=== PATIENT | female | born 2000 | race Caucasian/White ===

== ENCOUNTER 2023-02-10 21:54 | Emergency (ER) | payer OTHER, MEDICAID, SELFPAY ==
[2023-02-10 21:57] VITALS: BP 114/72; PULSE 107; RESP 16; TEMP 37.1; O2SAT 100
[2023-02-10 22:13] LABS: Basophils Absolute Auto 0.1 K/mm3 (0.0-0.1); Basophils Percent Auto 0.6 % (0.2-1.2); Eosinophils Absolute Auto 0.3 K/mm3 (0-0.3); Eosinophils Percent Auto 3.2 % (0-4.4); Hematocrit 39.9 % (37.0-47.0); Hemoglobin 12.9 g/dL (12.0-15.0); Immature Granulocyte Absolute 0.02 K/mm3 (0.00-0.031); Immature Granulocyte Percent A 0.2 % (0-0.5); Lymphocytes Absolute Auto 3.58 K/mm3 (0.9-3.2); Lymphocytes Percent Auto 43.8 % (18.3-44.2); Mean Corpuscular HGB Conc 32.3 g/dl (32-36); Mean Corpuscular Hemoglobin 29.9 pg (26-34); Mean Corpuscular Volume 92.6 fl (80-100); Mean Platelet Volume 10.9 fl (7.4-10.4); Monocytes Absolute Auto 0.8 K/mm3 (0.1-0.6); Monocytes Percent Auto 10.3 % (2.6-8.5); Neutrophils Absolute Auto 3.4 K/mm3 (1.3-6.7); Neutrophils Percent Auto 41.9 % (45.5-73.1); Platelet Count Result 276 k/mm3 (150-375); Red Blood Count 4.31 M/mm3 (4.2-5.4); Red Cell Distribution Width 12.6 % (11.5-14.5); White Blood Count 8.2 K/mm3 (4.5-10.0)
[2023-02-10 22:23] LABS: Alanine Aminotransferase 22 U/L (6-35); Albumin Level 4.7 g/dL (3.5-5.1); Alkaline Phosphatase 50 U/L (38-126); Anion Gap 7 mmol/L (8-16); Aspartate Amino Transferase 31 U/L (14-36); Bilirubin,Total 0.4 mg/dL (0.2-1.3); Blood Urea Nitrogen 7 mg/dL (7-17); Carbon Dioxide 28 mmol/L (22-30); Chloride 103 mmol/L (98-107); Estimated CRCL calculation 98 ml/min; Estimated Glomerular Filt Rate > 60; Glucose 78 mg/dL (65-110); Lipase 41 U/L (23-300); Potassium 3.4 mmol/L (3.4-5.0); Sodium 138 mmol/L (137-145)
[2023-02-10 22:47] LABS: Appearance Urine Cloudy (Clear); Bacteria Urine None Seen /hpf; Bilirubin Urine Negative (Negative); Blood Urine Negative (Negative); Color Urine Yellow (Yellow); Glucose Urine UA Negative (Negative); Ketones Urine Negative (Negative); Leukocyte Esterase Ur Negative LEU/UL (Negative); Nitrate Urine Negative (Negative); Non Pathogenic Casts 0-2; Protein Urine Negative (Negative); RBC Urine 0-2 /hpf (0-2); Specific Grav Ur 1.015 (1.001-1.035); Squamous Epithelial Cell Urine Few /hpf (Few); Urobilinogen Urine 0.2 mg/dL (<2.0); WBC Urine 0-5 /hpf; pH Urine 7.5 (5.0-9.0)
[2023-02-10 22:49] LABS: Add Urine Microscopic? YES
[2023-02-11 00:03] VITALS: BP 114/65; PULSE 92; RESP 16; TEMP 36.6; O2SAT 100
--- NOTE | 2023-02-11 04:13 | ED.GENADULT ---
HPI - General Adult General Chief complaint: Nausea/Vomiting/Diarrhea Stated complaint: I think I might have a C-diff infection History of Present Illness HPI narrative: This is a 23-year-old female presenting ED for chief complaint of diarrhea. Patient says that she has been and antibiotics for a nipple piercing infection and for a UTI for the last 2 weeks. During that time she has been having diarrhea. She denies fevers chills abdominal distension or significant pain. She spoke to a tele-doctor told her she may have C diff that she should go to emergency department immediately for evaluation. Related Data Allergies Allergy/AdvReac Type Severity Reaction Status Date / Time sulfamethoxazole Allergy Intermediate Rash Verified 02/11/23 01:42 [From Bactrim] trimethoprim [From Bactrim] Allergy Intermediate Rash Verified 02/11/23 01:42 PMFSH Past Medical History Medical History Bipolar 2 disorder Exam Narrative: APPEARANCE: No apparent distress. Well-appearing Head: atraumatic. EYES: EOMI, NOSE: Atraumatic NECK: Trachea midline RESPIRATORY: No increased rate of breathing CARDIOVASCULAR: RRR, ABDOMINAL: Non-distended, soft nontender no guarding or rebound MUSCULOSKELETAl: No obvious deformities NEURO: Alert. Moving 4/4 extremities SKIN:: Warm, dry. Normal color PSYCHIATRIC: Normal affect Course Vital Signs Vital signs: Vital Signs Temperature 98.7 F 02/10/23 21:57 Pulse Rate 107 H 02/10/23 21:57 Respiratory Rate 16 02/10/23 21:57 Blood Pressure 114/72 02/10/23 21:57 Pulse Oximetry 100 02/10/23 21:57 Oxygen Delivery Room Air 02/10/23 21:57 Temperature 98 F 02/11/23 00:03 Pulse Rate 92 02/11/23 00:03 Respiratory Rate 16 02/11/23 00:03 Blood Pressure 114/65 02/11/23 00:03 Pulse Oximetry 100 02/11/23 00:03 Oxygen Delivery Room Air 02/10/23 21:57 Medical Decision Making MDM Narrative Medical decision making narrative: -Course: 23-year-old female on antibiotics presenting with diarrhea. Vital signs are stable. Benign abdominal exam. Afebrile with no white count. C diff unlikely. Diarrhea likely due to antibiotic use. Patient discharged with primary care follow-up -DDX includes but is not limited to: Diarrhea, gastroenteritis, C diff, antibiotic associated diarrhea -Co-morbidities complicating care: bipolar disorder -Social determinants of health: student, lives in [place] -Independent interpretation of studies: lab work within normal limits. Urine not indicative of infection. -Shared decision making / Disposition: Discharged -RX: Loperamide Vital Signs Vital Signs: Vital Signs Temperature 98.7 F 02/10/23 21:57 Pulse Rate 107 H 02/10/23 21:57 Respiratory Rate 16 02/10/23 21:57 Blood Pressure 114/72 02/10/23 21:57 Pulse Oximetry 100 02/10/23 21:57 Oxygen Delivery Room Air 02/10/23 21:57 Temperature 98 F 02/11/23 00:03 Pulse Rate 92 02/11/23 00:03 Respiratory Rate 16 02/11/23 00:03 Blood Pressure 114/65 02/11/23 00:03 Pulse Oximetry 100 02/11/23 00:03 Oxygen Delivery Room Air 02/10/23 21:57 Lab Data 02/10/23 22:05 02/10/23 22:05 Labs: Lab Results 02/10/23 02/10/23 Range/Units 22:05 22:34 WBC 8.2 (4.5-10.0) K/mm3 RBC 4.31 (4.2-5.4) M/mm3 Hgb 12.9 (12.0-15.0) g/dL Hct 39.9 (37.0-47.0) % MCV 92.6 (80-100) fl MCH 29.9 (26-34) pg MCHC 32.3 (32-36) g/dl RDW 12.6 (11.5-14.5) % Plt Count 276 (150-375) k/mm3 MPV 10.9 H (7.4-10.4) fl Immature Gran % (Auto) 0.2 (0-0.5) % Neut % (Auto) 41.9 L (45.5-73.1) % Lymph % (Auto) 43.8 (18.3-44.2) % Bennett % (Auto) 10.3 H (2.6-8.5) % Eos % (Auto) 3.2 (0-4.4) % Baso % (Auto) 0.6 (0.2-1.2) % Lymph # (Auto) 3.58 H (0.9-3.2) K/mm3 Bennett # (Auto) 0.8 H (0.1-0.6) K/mm3 Eos # (Auto) 0.3 (0-0.3) K
[2023-02-11 04:31] VITALS: BP 121/68; PULSE 87; RESP 16; O2SAT 99
== END 2023-02-11 04:35 | disposition home or self-care (01) ==
PROVIDERS: Emergency Provider Emergency Medicine
DX: R19.7 Diarrhea, unspecified (principal)
CPT/HCPCS: 36415; 80053; 81001; 81025; 83690; 85025; 99283

== ENCOUNTER 2023-02-11 18:37 | Emergency (ER) | payer OTHER, MEDICAID, SELFPAY ==
[2023-02-11 18:39] VITALS: BP 113/78; PULSE 100; RESP 18; TEMP 36.4; O2SAT 99
[2023-02-11 18:56] LABS: Basophils Absolute Auto 0.1 K/mm3 (0.0-0.1); Basophils Percent Auto 0.6 % (0.2-1.2); Eosinophils Absolute Auto 0.2 K/mm3 (0-0.3); Eosinophils Percent Auto 2.5 % (0-4.4); Hemoglobin 12.7 g/dL (12.0-15.0); Immature Granulocyte Absolute 0.02 K/mm3 (0.00-0.031); Immature Granulocyte Percent A 0.2 % (0-0.5); Lymphocytes Absolute Auto 3.18 K/mm3 (0.9-3.2); Lymphocytes Percent Auto 37.7 % (18.3-44.2); Mean Corpuscular HGB Conc 32.6 g/dl (32-36); Mean Corpuscular Hemoglobin 30.2 pg (26-34); Mean Corpuscular Volume 92.6 fl (80-100); Mean Platelet Volume 10.8 fl (7.4-10.4); Monocytes Absolute Auto 0.8 K/mm3 (0.1-0.6); Neutrophils Absolute Auto 4.1 K/mm3 (1.3-6.7); Platelet Count Result 256 k/mm3 (150-375); Red Blood Count 4.21 M/mm3 (4.2-5.4); Red Cell Distribution Width 12.7 % (11.5-14.5); White Blood Count 8.4 K/mm3 (4.5-10.0)
[2023-02-11 19:08] LABS: Alanine Aminotransferase 23 U/L (6-35); Albumin Level 4.4 g/dL (3.5-5.1); Alkaline Phosphatase 56 U/L (38-126); Anion Gap 7 mmol/L (8-16); Aspartate Amino Transferase 27 U/L (14-36); Bilirubin,Total 0.4 mg/dL (0.2-1.3); Blood Urea Nitrogen 6 mg/dL (7-17); Calcium 8.8 mg/dL (8.4-10.2); Carbon Dioxide 26 mmol/L (22-30); Chloride 105 mmol/L (98-107); Estimated CRCL calculation 103 ml/min; Estimated Glomerular Filt Rate > 60; Glucose 101 mg/dL (65-110); Lipase 41 U/L (23-300); Potassium 3.6 mmol/L (3.4-5.0); Sodium 138 mmol/L (137-145)
== END 2023-02-11 21:59 | disposition left against medical advice (07) ==
PROVIDERS: Emergency Provider Student in an Organized Health Care Education/Training Program
DX: R10.9 Unspecified abdominal pain (principal)
CPT/HCPCS: 36415; 80053; 81025; 83690; 85025; 99199

== ENCOUNTER 2024-02-20 09:27 | Emergency (ER) | payer OTHER, SELFPAY ==
[2024-02-20] VITALS (7 sets, daily range): BP systolic 89–97; BP diastolic 55–60; PULSE 61–89; RESP 10–14; TEMP 36.6; O2SAT 98–100
[2024-02-20] MEDS: SODIUM CHLORIDE 0.9% IV 1,000 ML 999 ML IV CONT ×2 (09:47→10:15)
[2024-02-20 09:51] LABS: Basophils Absolute Auto 0.1 K/mm3 (0.0-0.1); Basophils Percent Auto 0.8 % (0.2-1.2); Eosinophils Absolute Auto 0.3 K/mm3 (0-0.3); Eosinophils Percent Auto 4.4 % (0-4.4); Hematocrit 38.6 % (37.0-47.0); Hemoglobin 12.3 g/dL (12.0-15.0); Immature Granulocyte Absolute 0.02 K/mm3 (0.00-0.031); Immature Granulocyte Percent A 0.3 % (0-0.5); Lymphocytes Absolute Auto 1.92 K/mm3 (0.9-3.2); Lymphocytes Percent Auto 26.6 % (18.3-44.2); Mean Corpuscular HGB Conc 31.9 g/dl (32-36); Mean Corpuscular Hemoglobin 30.3 pg (26-34); Mean Corpuscular Volume 95.1 fl (80-100); Mean Platelet Volume 10.7 fl (7.4-10.4); Monocytes Absolute Auto 0.8 K/mm3 (0.1-0.6); Monocytes Percent Auto 10.5 % (2.6-8.5); Neutrophils Absolute Auto 4.1 K/mm3 (1.3-6.7); Neutrophils Percent Auto 57.4 % (45.5-73.1); Platelet Count Result 311 k/mm3 (150-375); Red Blood Count 4.06 M/mm3 (4.2-5.4); Red Cell Distribution Width 13.1 % (11.5-14.5); White Blood Count 7.2 K/mm3 (4.5-10.0)
[2024-02-20 10:08] LABS: INR 0.9; Prothrombin Time 12.4 Seconds (11.1-14.7)
[2024-02-20 10:09] LABS: Partial Thromboplastin Time 27.1 Seconds (22.3-36.8)
[2024-02-20 10:23] LABS: Add Urine Microscopic? YES; Appearance Urine Cloudy (Clear); Bacteria Urine 1+ /hpf; Bilirubin Urine Negative (Negative); Blood Urine Negative (Negative); Color Urine Yellow (Yellow); Glucose Urine UA Negative (Negative); Ketones Urine Trace mg/dL (Negative); Leukocyte Esterase Ur 1+ LEU/UL (Negative); Nitrate Urine Negative (Negative); Non Pathogenic Casts 0-2; Protein Urine Negative (Negative); RBC Urine 0-2 /hpf (0-2); Squamous Epithelial Cell Urine Many /hpf (Few); Urobilinogen Urine 0.2 mg/dL (<2.0); WBC Urine 21-50 /hpf (0-3); pH Urine 5.5 (5.0-9.0)
[2024-02-20 10:28] LABS: BEDSIDEPREGUCG Negative (Negative)
--- NOTE | 2024-02-20 10:37 | ED.GENADULT ---
HPI - General Adult General Chief complaint: Recheck/Abnormal Lab/Rx Stated complaint: low BP Time Seen by Provider: 02/20/24 09:41 History of Present Illness HPI narrative: 24-year-old female presenting to the emergency department for evaluation for low blood pressure. Patient is currently over at [place] getting detox for opiates. Patient initially thought it was secondary to her medication. Patient did have a low blood pressure upon arrival patient is not tachycardic. Patient does have dry mucous membranes but is in no distress. Related Data Allergies Allergy/AdvReac Type Severity Reaction Status Date / Time sulfamethoxazole Allergy Intermediate Rash Verified 02/20/24 09:48 [From Bactrim] trimethoprim [From Bactrim] Allergy Intermediate Rash Verified 02/20/24 09:48 Review of Systems Review of Systems: All systems reviewed & are unremarkable except as noted in HPI and below PMFSH Past Medical History Medical History Bipolar 2 disorder Exam Narrative: APPEARANCE: Well appearing, no pain, no distress, well-nourished. HEAD: normocephalic, atraumatic. EYES: PERRLA/EOMI, conjunctivae clear. NOSE: Normal no drainage EARS:TMS clear with good light reflex. THROAT: Pharynx clear, no exudate. NECK: Supple. No adenopathy, no masses. RESPIRATORY: Airway patent, respirations nonlabored. Clear to auscultation bilaterally, no rales, rhonchi, wheezing. CARDIOVASCULAR: Regular rate and rhythm without murmurs rubs or gallops. ABDOMINAL: Soft, nontender, nondistended, normal bowel sounds MUSCULOSKELETAL: Moves all extremities. Strength/ROM intact, No edema, No calf tenderness. NEURO: Alert. Cranial nerves II through XII intact. Grossly intact SKIN: Warm, dry. Normal Color Course Vital Signs Vital signs: Vital Signs Temperature 97.8 F 02/20/24 09:33 Pulse Rate 89 02/20/24 09:33 Respiratory Rate 10 L 02/20/24 09:33 Blood Pressure 89/55 L 02/20/24 09:33 Pulse Oximetry 98 02/20/24 09:33 Oxygen Delivery Room Air 02/20/24 09:33 Temperature 97.8 F 02/20/24 09:33 Pulse Rate 63 02/20/24 12:12 Respiratory Rate 14 02/20/24 10:59 Blood Pressure 97/57 L 02/20/24 12:12 Pulse Oximetry 100 02/20/24 10:59 Oxygen Delivery Room Air 02/20/24 09:33 Medical Decision Making MDM Narrative Medical decision making narrative: 24-year-old female present to the emergency department for evaluation for low pressure thought to be secondary to her [place]. Patient was treated with 2 L of IV fluid and has negative orthostatic vitals. Patient is afebrile with no leukocytosis and a stable hemoglobin of 12.3. Patient has no acute abnormalities on her CMP. UA was concerning for possible infection but patient denies any urinary symptoms so she will not be started on antibiotics, urine culture is pending. Patient will be discharged back to her care facility. Differential Diagnosis Differential Diagnosis: Anemia, hypotension, dehydration, adverse medication reaction Vital Signs Vital Signs: Vital Signs Temperature 97.8 F 02/20/24 09:33 Pulse Rate 89 02/20/24 09:33 Respiratory Rate 10 L 02/20/24 09:33 Blood Pressure 89/55 L 02/20/24 09:33 Pulse Oximetry 98 02/20/24 09:33 Oxygen Delivery Room Air 02/20/24 09:33 Temperature 97.8 F 02/20/24 09:33 Pulse Rate 63 02/20/24 12:12 Respiratory Rate 14 02/20/24 10:59 Blood Pressure 97/57 L 02/20/24 12:12 Pulse Oximetry 100 02/20/24 10:59 Oxygen Delivery Room Air 02/20/24 09:33 Lab Data Lab results reviewed: Yes I reviewed the patient's lab results. 02/20/24 09:45 02/20/24 09:45 Labs: Lab Results 02/20/24 02/20/24 02/20/24 Range/Units 09:45 10:04 10:26 WBC 7.2 (4.5-10.0) K/mm3 RBC 4.06 L (4.2-5.4) M/mm3 Hgb 12.3 (12.0-15.0) g/dL Hct 38.6 (37.0-47.0) % MCV 95.1 (80-100) fl MCH 30.3 (26-34) p
[2024-02-20 10:47] LABS: Alanine Aminotransferase 59 U/L (6-35); Albumin Level 3.9 g/dL (3.5-5.1); Alkaline Phosphatase 59 U/L (38-126); Anion Gap 7 mmol/L (4-12); Aspartate Amino Transferase 38 U/L (14-36); Bilirubin,Total 0.3 mg/dL (0.2-1.3); Blood Urea Nitrogen 12 mg/dL (7-17); Calcium 8.8 mg/dL (8.4-10.2); Carbon Dioxide 28 mmol/L (22-30); Chloride 101 mmol/L (98-107); Estimated CRCL calculation 121 ml/min; Estimated Glomerular Filt Rate > 60; Glucose 66 mg/dL (65-110); Magnesium 1.8 mg/dL (1.6-2.3); Sodium 136 mmol/L (137-145)
--- NOTE | 2024-02-20 11:19 | PC.NURSE ---
Bedside report given to Dulce Maria MARIEE, all questions answered
== END 2024-02-20 13:12 | disposition home or self-care (01) ==
PROVIDERS: Emergency Provider Emergency Medicine
DX: I95.9 Hypotension, unspecified (principal)
CPT/HCPCS: 36415; 80053; 81001; 81025; 83735; 85025; 85610; 85730; 87086; 96360; 96361; 99283; J7030